=== PATIENT | male | born 1970 | race Two or more races ===

== ENCOUNTER 2017-09-05 11:21 | Emergency (ER) | payer SELFPAY ==
[~2017-09-05] VITALS: Ht 165.1 cm; Wt 94.3 kg
[2017-09-05 12:05] VITALS: BP 149/101
== END 2017-09-05 12:42 | disposition home or self-care (01) ==
LOC: ER 11:21
DX: F41.9 Anxiety disorder, unspecified (principal); I10 Essential (primary) hypertension

== ENCOUNTER 2020-06-04 16:46 | Emergency (ER) | payer SELFPAY ==
[~2020-06-04] VITALS: Ht 162.6 cm; Wt 86.2 kg
[2020-06-04 17:37] VITALS: BP 142/107
[2020-06-04] MEDS ORDERED: ACETAMINOPHEN 325 MG TAB PO ONE (18:15)
== END 2020-06-04 20:48 | disposition home or self-care (01) ==
LOC: ER 16:46
DX: U07.1 COVID-19 (principal); J20.8 Acute bronchitis due to other specified organisms; I10 Essential (primary) hypertension
CPT/HCPCS: 71045; 99284; U0003

== ENCOUNTER → 2020-06-05 | Emergency (ER) | payer SELFPAY ==
[~2020-06-05] VITALS: Ht 162.6 cm; Wt 86.2 kg
[2020-06-05 17:59] VITALS: BP 140/89
== END | disposition home or self-care (01) ==
LOC: ER 17:31
DX: R05 Cough (principal); R09.81 Nasal congestion; R50.9 Fever, unspecified; Z20.828 Contact with and (suspected) exposure to other viral communicable diseases; J45.909 Unspecified asthma, uncomplicated; I10 Essential (primary) hypertension